=== PATIENT | male | born 1965 | race Caucasian/White ===

== ENCOUNTER 2017-05-06 14:22 | Emergency (ER) | payer OTHER ==
[~2017-05-06] VITALS: Ht 185.4 cm; Wt 107.6 kg
[~2017-05-06 14:22] MED LIST: ALBUTEROL SULF8.5 GM IH; CREON 241 CAPSULE PO; CREON DR 24,001 EACH PO; DEPAKOTE250 MG PO; DEPAKOTE500 MG PO; ENDOCET 5-3251 EACH PO; HUMALOG100 UNIT/1 SC; HUMULIN R500 UNITS/ SC; LANTUS 3 M100 UNITS/ SC; LEXAPRO20 MG PO; LITE COAT ASPI325 M1 PO; Lopid PO; NOVOLOG PE100 UNITS/ SC; OXYCODONE HCL10 MG PO; PRAVACHOL80 MG PO; PRILOSEC20 MG PO; Proventil,Ventolin H IH; TRICOR145 MG PO; ZESTRIL,PRINIVI20 MG PO; ZESTRIL40 MG PO; ZETIA10 MG PO
[2017-05-06 14:53] LABS: HEMATOCRIT 52.4 % (38.0-50.0); MCH 30.2 PG (29.0-34.0); MCHC 34.4 G/DL (30.0-36.0); MCV 87.8 FL (86-99); PLATELET COUNT 197 K/uL (156-360); RBC DIS.WIDTH-CV 12.4 % (11.8-14.6); RBC DIS.WIDTH-SD 40.4 % (39-53); RED BLOOD COUNT 5.97 M/uL (4.00-5.50); WHITE BLOOD COUNT 8.6 K/uL (4.1-10.2)
[2017-05-06 14:55] LABS: CHLORIDE 98 mEq/L (99-109); POTASSIUM 5.3 mEq/L (3.7-5.4); SODIUM 137 mEq/L (136-147)
[2017-05-06 14:57] LABS: GLUCOSE 310 mg/dL (70-99)
[2017-05-06 15:01] LABS: CREATININE 1.2 mg/dL (0.6-1.3); GFR ESTIMATE (CALCULATED) > 59 mL/min/ (58.99-99999)
[2017-05-06 15:02] LABS: UREA NITROGEN (BUN) 16 mg/dL (9-23)
[2017-05-06 15:47] LABS: APPEARANCE CLEAR ((CLEAR)); BILIRUBIN NEGATIVE; BLOOD SMALL; COLOR STRAW ((YELLOW)); GLUCOSE (STRIP) >=500; KETONES NEGATIVE; LEUKOCYTES NEGATIVE; NITRITE NEGATIVE; PROTEIN (STRIP) NEGATIVE; SPECIFIC GRAVITY 1.033 (1.000-1.030); UROBILINOGEN 0.2 MG/DL (0.2-1.0)
[2017-05-06 15:51] LABS: BACTERIA NONE SEEN /HPF; EPITHELIAL CELLS NONE SEEN /HPF; MUCUS NONE SEEN /LPF; RED BLOOD CELLS 0-5 /HPF (0-5); WHITE BLOOD CELLS 0-5 /HPF (0-5)
[2017-05-06] MEDS ORDERED: ZOFRAN ODT4 MG PO (16:05)
[2017-05-06] MEDS ORDERED: BENTYL20 MG PO (16:06)
[2017-05-06 17:22] VITALS: BP 127/73
[2017-05-06 19:58] LABS: ALBUMIN 4.6 g/dL (3.2-4.8)
[2017-05-06 20:01] LABS: TOTAL PROTEIN 8.3 g/dL (6.4-8.3)
[2017-05-06 20:03] LABS: TOTAL BILIRUBIN 0.4 mg/dL (0.0-1.0)
[2017-05-06 20:04] LABS: ALKALINE PHOSPHATASE 60 IU/L (3-129)
[2017-05-06 20:06] LABS: AST (GOT) 17 IU/L (2-34); DIRECT BILIRUBIN 0.1 mg/dL (0.0-0.3)
[2017-05-06 20:07] LABS: ALT (GPT) 23 IU/L (3-49); LIPASE 30 U/L (1.0-51.0)
== END 2017-05-06 17:24 | disposition home or self-care (01) ==
LOC: EME 14:22
PROVIDERS: Nurse Practitioner Family
DX: J10.1 Influenza due to other identified influenza virus with other respiratory manifestations (principal); E86.0 Dehydration; E11.65 Type 2 diabetes mellitus with hyperglycemia; I12.9 Hypertensive chronic kidney disease with stage 1 through stage 4 chronic kidney disease, or unspecified chronic kidney disease; N18.9 Chronic kidney disease, unspecified; E11.22 Type 2 diabetes mellitus with diabetic chronic kidney disease; F17.200 Nicotine dependence, unspecified, uncomplicated; Z87.442 Personal history of urinary calculi; Z86.73 Personal history of transient ischemic attack (TIA), and cerebral infarction without residual deficits; K21.9 Gastro-esophageal reflux disease without esophagitis; F41.9 Anxiety disorder, unspecified; F32.9 Major depressive disorder, single episode, unspecified; F31.9 Bipolar disorder, unspecified; Z90.49 Acquired absence of other specified parts of digestive tract; Z79.4 Long term (current) use of insulin; Z88.5 Allergy status to narcotic agent
CPT/HCPCS: 71046; 80048; 80076; 81003; 82948; 83690; 85027; 87502; 99281; 99284; J1885; J2405; J7030